=== PATIENT | male | born 1940 | race Caucasian/White ===

== ENCOUNTER 2020-10-26 22:54 | Emergency (ER) | payer MEDICARE, OTHER ==
[2020-10-26 23:17] LABS: BASOPHIL 0.2 % (0-2); EOSINOPHIL 0.4 % (0-7); HCT 48.1 % (42.0-52.0); HGB 17.3 g/dl (13.2-18.0); LYMPHOCYTE 44.9 % (15-48); MCH 32.3 pg (25.0-31.0); MCV 89.7 fL (78.0-100.0); MONOCYTE 8.7 % (0-12); MPV 11.5 fL (6.0-9.5); NEUTROPHIL 45.4 % (41-80); NRBC 0; PLT 164 K/uL (150-400); RBC 5.36 M/uL (4.70-6.00); RDW 13.8 % (11.5-14.0); WBC 12.9 K/uL (4.0-10.5)
[2020-10-26 23:31] LABS: LACTIC ACID 2.1 mmol/L (0.4-1.9)
[2020-10-26 23:39] LABS: ALBUMIN 3.9 g/dL (3.4-5.0); BILIRUBIN - TOTAL 1.2 mg/dL (0.2-1.0); BUN/CREAT RATIO (CALC) 17.4 RATIO; CREATININE 1.15 mg/dL (0.67-1.17); GLOBULIN (CALCULATION) 3.2 g/dL; POTASSIUM 3.8 mmol/L (3.5-5.1); TOTAL PROTEIN 7.1 g/dL (6.4-8.2)
[2020-10-27] MEDS ORDERED: BENTYL10 MG PO (02:36)
[2020-10-27] MEDS ORDERED: ONDANSETRON ODT4 MG SL (02:36)
[2020-12-21] MEDS ORDERED: LISINOPRIL-HCT1 EACH PO (10:33)
[2020-12-21] MEDS ORDERED: ATENOLOL25 MG PO (10:34)
[2020-12-21] MEDS ORDERED: DIAZEPAM 5MG TAB5 MG PO (10:36)
== END 2020-10-27 02:48 | disposition home or self-care (01) ==
LOC: FER 22:54
PROVIDERS: Emergency Medicine Emergency Medical Services
DX: R10.84 Generalized abdominal pain (principal); R11.0 Nausea; I10 Essential (primary) hypertension; Z79.899 Other long term (current) drug therapy; I45.10 Unspecified right bundle-branch block
CPT/HCPCS: 36415; 80053; 83605; 83690; 84145; 84484; 85025; 87040; 93005; 96372; J0500; J1170; J2405; J7030; Q9967

== ENCOUNTER 2020-12-28 07:22 | Day surgery (SDCO) | payer MEDICARE, OTHER ==
[~2020-12-28] VITALS: Ht 178 cm; Wt 88.3 kg
[~2020-12-28 07:22] MED LIST: ATENOLOL25 MG PO; BENTYL10 MG PO; DIAZEPAM 5MG TAB5 MG PO; LISINOPRIL-HCT1 EACH PO; ONDANSETRON ODT4 MG SL
[2020-12-28 07:56] LABS: HCT 50.4 % (42.0-52.0); HGB 17.5 g/dl (13.2-18.0); MCH 31.7 pg (25.0-31.0); MCHC 34.7 g/dL (32.0-36.0); MCV 91.3 fL (78.0-100.0); MPV 11.3 fL (6.0-9.5); RBC 5.52 M/uL (4.70-6.00); WBC 8.2 K/uL (4.0-10.5)
[2020-12-28 08:16] LABS: BILIRUBIN - TOTAL 1.4 mg/dL (0.2-1.0); BUN/CREAT RATIO (CALC) 20.2 RATIO; CREATININE 1.09 mg/dL (0.67-1.17); GLOBULIN (CALCULATION) 3.3 g/dL; POTASSIUM 4.1 mmol/L (3.5-5.1); TOTAL PROTEIN 7.3 g/dL (6.4-8.2)
[2020-12-28] MEDS ORDERED: NORCO 5-325 TA1 EACH PO (11:18)
[2020-12-28] MEDS ORDERED: ONDANSETRON ODT8 MG PO (11:18)
[2020-12-28 17:25] LABS: MAGNESIUM 2.1 mg/dL (1.8-2.4); PHOSPHORUS 3.5 mg/dL (2.6-4.7)
[2020-12-29 07:21] LABS: BASOPHIL 0.1 % (0-2); EOSINOPHIL 0.4 % (0-7); HCT 44.4 % (42.0-52.0); HGB 15.2 g/dl (13.2-18.0); LYMPHOCYTE 19.3 % (15-48); MCH 31.8 pg (25.0-31.0); MCHC 34.2 g/dL (32.0-36.0); MCV 92.9 fL (78.0-100.0); MONOCYTE 9.8 % (0-12); MPV 11.4 fL (6.0-9.5); NEUTROPHIL 70.2 % (41-80); NRBC 0; PLT 135 K/uL (150-400); RBC 4.78 M/uL (4.70-6.00); RDW 14.2 % (11.5-14.0); WBC 8.1 K/uL (4.0-10.5)
[2020-12-29 07:39] LABS: BUN/CREAT RATIO (CALC) 20.2 RATIO; CREATININE 0.89 mg/dL (0.67-1.17); MAGNESIUM 1.8 mg/dL (1.8-2.4); POTASSIUM 4.3 mmol/L (3.5-5.1)
--- NOTE | 2020-12-29 15:03 | NUR ---
12/29/20 Mr. Huggins lives at home with his spouse. He is active in the home and community; continuing to work. No discharge planning needs are anticipated.
[2020-12-29 15:07] LABS: BILIRUBIN NEGATIVE (NEGATIVE); BLOOD 2+ Ery/uL (NEGATIVE); CLARITY CLEAR (CLEAR); COLOR YELLOW (YELLOW); GLUCOSE (U) 1+ mg/dL (NORMAL); LEUKOCYTES NEGATIVE Leu/uL (NEGATIVE); NITRITE NEGATIVE (NEGATIVE); PROTEIN NEGATIVE (NEGATIVE); SPECIFIC GRAVITY <=1.005 (1.001-1.030)
[2020-12-29 15:13] LABS: URINARY WBC RARE
[2020-12-29 15:14] LABS: SQUAMOUS EPITHELIAL CELLS RARE
--- NOTE | 2020-12-30 09:11 | NUR ---
PATIENT WAS TOLD NEEDED TO GO FOR CARDIAC CATH. FAMILY NOTIFIED AND ALLOWED IN TO SEE PATIENT . IT WAS LATER DECIDED HE COULD FOLLOW UP WITH AN OUTPATIENT NARCISOAN. AND FOLLOW UP WITH ELVIA CABALLERO. TRANSFER CANCELLED
--- NOTE | 2020-12-30 11:15 | NUR ---
PATIENT DISCHARGED VIA WHEELCHAIR ACCOMPANIED BY NURSE AND FAMILY. DISCHARGE INSTRUCTIONS GIVEN TO PATIENT WITH APPOINTMENTS, INSTRUCTIONS FOR LEXISCAN, AND MEDICATIONS CHANGES. PATIENT VERBALIZED AN UNDERSTANDING OF INSTRUCTIONS AND STATED HE WOULD KEEP APPOINTMENTS.
== END 2020-12-30 11:05 | disposition home or self-care (01) ==
LOC: FAS 07:22 → FICU 15:34
PROVIDERS: Surgery; ADMIT Internal Medicine
DX: K80.10 Calculus of gallbladder with chronic cholecystitis without obstruction (principal); K82.8 Other specified diseases of gallbladder; K66.0 Peritoneal adhesions (postprocedural) (postinfection); I49.9 Cardiac arrhythmia, unspecified; I49.3 Ventricular premature depolarization; I45.10 Unspecified right bundle-branch block; I10 Essential (primary) hypertension; I27.20 Pulmonary hypertension, unspecified; N17.9 Acute kidney failure, unspecified; R94.31 Abnormal electrocardiogram [ECG] [EKG]; R93.1 Abnormal findings on diagnostic imaging of heart and coronary circulation; Z87.19 Personal history of other diseases of the digestive system; Z79.899 Other long term (current) drug therapy
CPT/HCPCS: 36415; 80048; 80053; 81001; 83735; 84100; 84484; 85025; 93005; 94010; C1758; G0378; J1170; J2250; J2270; J2405; J2704; J2710; J3010; J7120; Q9967